=== PATIENT | female | born 1945 | race Caucasian/White ===

== ENCOUNTER 2017-10-31 11:08 | Outpatient (CLI) | payer MEDICARE, BC | END 2017-10-31 11:09 | disposition home or self-care (01) | LOC: BICMAMMO 11:08 | PROVIDERS: ATTEND Obstetrics & Gynecology | DX: Z12.31 Encounter for screening mammogram for malignant neoplasm of breast (principal) | CPT/HCPCS: 77063; 77067 ==

== ENCOUNTER 2024-06-23 10:52 | Outpatient (CLI) | payer MEDICARE, BC | END 2024-06-23 10:53 | disposition home or self-care (01) | LOC: RAD 10:52 | PROVIDERS: ATTEND Physician Assistant | DX: R13.10 Dysphagia, unspecified (principal); J30.0 Vasomotor rhinitis; J30.9 Allergic rhinitis, unspecified | CPT/HCPCS: 74230 ==